=== PATIENT | female | born 1995 | race Hispanic/Latino ===

== ENCOUNTER 2017-07-24 20:13 | Emergency (ER) | payer SELFPAY ==
--- NOTE | 2017-07-24 20:56 | RAD ---
LEFT SHOULDER THREE VIEW 07/24/17 HISTORY: Injury. COMPARISON: None. FINDINGS: The shoulder is intact. The midclavicular fracture with inferior displacement one shaft width. Acromi oclavicular and coracoclavicular alignment is normal. IMPRESSION: Left clavicular fracture at the mid one third diaphysis with inferior displacement one shaft width. N ormal acromioclavicular and coracoclavicular alignment. POS: [facility]
--- NOTE | 2017-07-24 20:57 | RAD ---
LEFT CLAVICLE TWO VIEW 07/24/17 HISTORY: Injury. COMPARISON: None. FINDINGS: Mid shaft clavicular fracture at the middle one third diaphysis with inferior displacement one shaft width. Acromioclavicular and coracoclavicular alignment is normal. IMPRESSION: Mid shaft left clavicular fracture. POS: [facility]
[2017-07-24] MEDS ORDERED: Ibuprofen 200 MG TAB ONE (21:10)
== END 2017-07-24 21:13 | disposition home or self-care (01) ==
LOC: ERS 20:13
DX: S42.022A Displaced fracture of shaft of left clavicle, initial encounter for closed fracture (principal); W51.XXXA Accidental striking against or bumped into by another person, initial encounter; Y93.66 Activity, soccer